=== PATIENT | male | born 2005 | race Caucasian/White ===

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

== ENCOUNTER 2023-03-08 17:25 | Emergency (ER) | payer OTHER, SELFPAY ==
[2023-03-08 17:45] VITALS: BP 152/94; PULSE 88; RESP 16; TEMP 36.4; O2SAT 100
[2023-03-08 18:15] LABS: Basophils Percent Auto 0.5 % (0.2-1.2); Eosinophils Absolute Auto 0.1 K/mm3 (0-0.3); Hemoglobin 16.9 g/dL (14.0-18.0); Immature Granulocyte Absolute 0.02 K/mm3 (0.00-0.031); Immature Granulocyte Percent A 0.3 % (0-0.5); Lymphocytes Absolute Auto 3.07 K/mm3 (0.9-3.2); Mean Corpuscular HGB Conc 35.2 g/dl (32-36); Mean Corpuscular Hemoglobin 31.5 pg (26-34); Mean Corpuscular Volume 89.4 fl (80-100); Mean Platelet Volume 10.7 fl (7.4-10.4); Monocytes Absolute Auto 0.4 K/mm3 (0.1-0.6); Monocytes Percent Auto 6.4 % (2.6-8.5); Neutrophils Absolute Auto 2.7 K/mm3 (1.3-6.7); Neutrophils Percent Auto 42.8 % (45.5-73.1); Platelet Count Result 212 k/mm3 (150-375); Red Blood Count 5.37 M/mm3 (4.6-6.20); Red Cell Distribution Width 12.3 % (11.5-14.5); White Blood Count 6.4 K/mm3 (4.5-10.0)
[2023-03-08 18:19] LABS: Appearance Urine Clear (Clear); Bacteria Urine None Seen /hpf; Bilirubin Urine 1+ (Negative); Blood Urine Negative (Negative); Color Urine Dark Yellow (Yellow); Glucose Urine UA 3+ mg/dL (Negative); Ketones Urine Trace mg/dL (Negative); Leukocyte Esterase Ur Trace LEU/UL (Negative); Nitrate Urine Negative (Negative); Non Pathogenic Casts 0-2; Protein Urine 1+ mg/dL (Negative); RBC Urine 0-2 /hpf (0-2); Specific Grav Ur 1.034 (1.001-1.035); Squamous Epithelial Cell Urine None seen /hpf (Few); pH Urine 5.5 (5.0-9.0)
[2023-03-08 18:24] LABS: Ethanol < 10 mg/dL (<10)
[2023-03-08 18:27] LABS: Add Urine Microscopic? YES
[2023-03-08 18:31] LABS: Alanine Aminotransferase 24 U/L (6-50); Albumin Level 4.6 g/dL (3.7-5.6); Alkaline Phosphatase 88 U/L (58-237); Anion Gap 4 mmol/L (8-16); Aspartate Amino Transferase 24 U/L (17-59); Bilirubin,Total 1.3 mg/dL (0.2-1.3); Blood Urea Nitrogen 9 mg/dL (8-21); Calcium 9.8 mg/dL (8.9-10.7); Carbon Dioxide 33 mmol/L (22-30); Chloride 99 mmol/L (98-107); Estimated CRCL calculation 150 ml/min; Estimated Glomerular Filt Rate > 60; Glucose 248 mg/dL (65-110); Potassium 3.5 mmol/L (3.4-5.0); Sodium 136 mmol/L (134-143)
[2023-03-08 18:35] LABS: Amphetamine Screen Urine Negative (Negative); Barbiturate Screen Urine Negative (Negative); Benzodiazepines Screen Urine Negative (Negative); Cannabinoid Screen Urine Positive (Negative); Cocaine Screen Urine Negative (Negative); Methadone Screen Urine Negative (Negative); Opiate Screen Urine Negative (Negative); Phencyclidine Screen Urine Negative (Negative)
[2023-03-08 19:32] LABS: Influenza A QL RT-PCR Negative (Negative); Influenza B QL RT-PCR Negative (Negative); SARS-CoV-2 RNA PCR Negative (Negative)
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
--- NOTE | 2023-03-08 20:11 | PC.NURSE ---
Called [facility], spoke with Feliberto, was directed to call [facility] since the pt is under the age 21.
[2023-03-08 23:59] VITALS: BP 150/100; PULSE 78; RESP 15; TEMP 36.9; O2SAT 100
--- NOTE | 2023-03-09 02:32 | PC.NURSE ---
Patient requested nicotine patch. Per EDP Dr. Meyer patient can nicotine patch
[2023-03-09] MEDS: NICOTINE (*PBKC) 21 MG PATCH 1 PATCH TRANSDERM (02:35)
--- NOTE | 2023-03-09 07:14 | PC.NURSE ---
Safety tray ordered for patient
== END 2023-03-09 09:31 ==
PROVIDERS: Emergency Provider Emergency Medicine; PCP Student in an Organized Health Care Education/Training Program
DX: F31.9 Bipolar disorder, unspecified (principal); R45.850 Homicidal ideations; E11.9 Type 2 diabetes mellitus without complications; Z20.822 Contact with and (suspected) exposure to COVID-19; Z79.84 Long term (current) use of oral hypoglycemic drugs
CPT/HCPCS: 36415; 80053; 80307; 81001; 84443; 85025; 87086; 87088; 87636; 99285; A9270

== ENCOUNTER 2023-06-25 14:42 | Emergency (ER) | payer OTHER, SELFPAY ==
--- NOTE | 2023-06-25 14:47 | ED.EYEPROB ---
HPI - Eye Problem General Chief complaint: Eye Problems Stated complaint: EYELID REDNESS/SWELLING Time Seen by Provider: 06/25/23 15:02 Source: patient and RN notes reviewed Mode of arrival: ambulatory Limitations: no limitations History of Present Illness HPI Narrative: 18-year-old male presents concern for redness and swelling of his left lower lid. He reports he noticed it several days ago. He tried a warm compress wants without relief. He denies vision changes. Reports it did drain some purulent drainage 1 time. chief complaint: eye redness Related Data Home Medications Medication Instructions Recorded Confirmed clonidine HCl 0.1 mg tablet 0.1 mg PO BID 06/25/23 06/25/23 duloxetine 60 mg capsule,delayed 60 mg PO DAILY 06/25/23 06/25/23 release gabapentin 600 mg tablet 600 mg PO TID 06/25/23 06/25/23 ziprasidone HCl 80 mg capsule 80 mg PO DAILY 06/25/23 06/25/23 Allergies Allergy/AdvReac Type Severity Reaction Status Date / Time No Known Allergies Allergy Verified 06/25/23 14:50 Review of Systems Review of Systems: CONSTITUTIONAL: Denies malaise, chills, sweats, or fever. EYES: Denies visual changes. Reports redness, tenderness, 1 episode of discharge from the left lower lid ENT: Denies rhinorrhea, congestion, sinus pain, otalgia or sore throat. SKIN: Denies rash or itching. NEUROLOGIC: Denies numbness, weakness, or headache. PSYCHIATRIC: Denies anxiety or depression. All systems reviewed & are unremarkable except as noted in HPI and below PMFSH Past Medical History Medical History Diabetes Surgical History Surgical History History of hand surgery Social History Social History Substance use type: marijuana Comments At time of signature, agree with nursing past medical, surgical, social and family history. There is no relevant family history pertinent to the presenting complaint Exam Narrative: GENERAL: Well-appearing, well-nourished, and in no acute distress. HEAD: Normocephalic, atraumatic. EYES: PERRLA, sclera clear, and EOMI. No nystagmus. Bilateral conjunctivae injected. Upper and lower eyelid unremarkable, no periorbital edema noted ENT: Nares clear, turbinates pink, no rhinorrhea or epistaxis. Mucous membranes moist. TM pearly renteria with sharp light reflex bilaterally; no tragal tenderness. NECK: Supple. CHEST: No respiratory distress. Speaks in full sentences. HEART: Regular rate and rhythm. SKIN: Warm, dry, no visible rash. NEURO: Alert and oriented x3. PSYCH: Normal mood and affect Course Course Emergency Course: Patient is aware of diagnosis, understands and agrees to treatment plan. Anticipatory guidance given. Patient agrees to follow-up as directed and is aware of reasons to seek care at the emergency department. Portions of this record may have been created with voice recognition software Level of Care: Express Care Visit Vital Signs Vital signs: Reviewed. MDM - Eye Problem MDM Narrative Medical decision making narrative: Consideration of the following conditions may be warranted for the presenting problem, they are not final diagnoses: Bacterial conjunctivitis, allergic conjunctivitis, viral conjunctivitis, foreign body, blepharitis, chalazion, hordeolum, corneal abrasion, preseptal cellulitis, orbital cellulitis. No evidence of proptosis, ophthalmoplegia, vision loss, pain with eye movement. Exam findings show no acute concerns or changes; patient is non-toxic appearing and is in no distress. Patient is appropriate for outpatient treatment and follow-up. Critical Care Time Critical Care Time Critical Care Time: No Discharge Plan Discharge Clinical Impression: Hordeolum internum left lower eyelid Patient Disposition: Home, Self-Care Condition: Stable Instructions
[2023-06-25 14:53] VITALS: BP 160/100; PULSE 116; RESP 16; TEMP 36.1; O2SAT 99
== END 2023-06-25 15:16 | disposition home or self-care (01) ==
PROVIDERS: Emergency Provider Nurse Practitioner
DX: H00.025 Hordeolum internum left lower eyelid (principal); E11.9 Type 2 diabetes mellitus without complications; F12.90 Cannabis use, unspecified, uncomplicated
CPT/HCPCS: 99213; G0463

== ENCOUNTER 2023-12-03 19:26 | Emergency (ER) | payer OTHER, SELFPAY ==
--- NOTE | 2023-12-03 19:29 | ED.URI ---
HPI - URI/Sore Throat General Chief Complaint: Upper Respiratory Infection Stated Complaint: CONGESTION/GAGGING Time Seen by Provider: 12/03/23 19:29 Source: patient Mode of arrival: ambulatory Limitations: no limitations History of Present Illness HPI Narrative: Yusef is a 18-year-old male patient presenting to the clinic today with complaints of cough and congestion with gagging. Reports that he has slight scratchy throat. Symptoms have been going on for 1 week. He denies any known fever or chills. He has not taken anything for his symptoms as he does not know what is going on. Related Data Home Medications Medication Instructions Recorded Confirmed clonidine HCl 0.1 mg tablet 0.1 mg PO BID 12/03/23 12/03/23 gabapentin 600 mg tablet 600 mg PO BID 12/03/23 12/03/23 Allergies Allergy/AdvReac Type Severity Reaction Status Date / Time No Known Allergies Allergy Verified 12/03/23 19:35 Review of Systems Review of Systems: Pertinent positives per HPI. Patient denies any fever, chills, rash, headache, visual changes, dizziness, shortness of breath, chest pain, palpitations, nausea, vomiting, diarrhea, constipation, abdominal pain, or any urinary issues. PMFSH Past Medical History Medical History Diabetes Surgical History Surgical History History of hand surgery Social History Social History Substance use type: marijuana Comments At the time of my signature, I reviewed and agree with the nursing past medical, surgical, social, and family history. There is no relevant family history pertinent to the patient complaint. Exam Narrative: General: Well-developed, well nourished, in no apparent distress Head: Normocephalic, atraumatic Eyes: Pupils equally round and reactive to light bilaterally, EOM intact, sclera and conjunctive clear, no discharge, lids normal Ears: TMs intact and clear, ear canals clear, no drainage, grossly hearing normal. Nose: Nares patent, clear discharge, no inflammation, no sinus tenderness. Mouth: Oropharynx mildly red without lesions or masses, good dentition, MMM. Neck: Supple, trachea midline, no enlargement of anterior or posterior cervical nodes, no thyroid masses or goiter palpable. Cardio: Regular rate and rhythm, s1 and s2 normal, no murmur appreciated. Resp: Clear to auscultation bilaterally anteriorly and posteriorly, no rhonchi, rales, wheezing or rubs Course Course Emergency Course: Portions of this record may have been created with voice recognition software. Level of Care: Express Care Visit Vital Signs Vital signs: Vital Signs Temperature 37.3 C 12/03/23 19:38 Pulse Rate 110 H 12/03/23 19:38 Respiratory Rate 20 12/03/23 19:38 Blood Pressure 150/101 H 12/03/23 19:38 Pulse Oximetry 98 12/03/23 19:38 Temperature 37.3 C 12/03/23 19:38 Pulse Rate 110 H 12/03/23 19:38 Respiratory Rate 20 12/03/23 19:38 Blood Pressure 150/101 H 12/03/23 19:38 Pulse Oximetry 98 12/03/23 19:38 Vital signs reviewed MDM - URI/Sore Throat MDM Narrative Medical decision making narrative: At the time of visit patient is resting comfortably on the exam table. Patient appears to be nontoxic. Labs: Strep test was negative in the clinic today. We will send for culture Plan: I suspect patient has URI with pharyngitis. Will send strep for culture. Recommend trialing [id number] medications for symptoms. Supportive measures were discussed with the patient and they voiced understanding discharge instructions and agrees to treatment plan. Return precautions reviewed Differential Diagnosis Differential diagnosis: Likely upper respiratory infection, otitis media, sinusitis, viral infection, bronchitis, influenza, pharyngitis and other (COVID) Lab Data Labs
[2023-12-03 19:38] VITALS: BP 150/101; PULSE 110; RESP 20; TEMP 37.3; O2SAT 98
== END 2023-12-03 19:57 | disposition home or self-care (01) ==
PROVIDERS: Emergency Provider Nurse Practitioner Family; PCP Internal Medicine Gastroenterology
DX: B34.9 Viral infection, unspecified (principal); J06.9 Acute upper respiratory infection, unspecified; J02.9 Acute pharyngitis, unspecified; E11.9 Type 2 diabetes mellitus without complications
CPT/HCPCS: 87081; 87880; 99213; G0463

== ENCOUNTER 2024-03-05 19:55 | Emergency (ER) | payer OTHER, SELFPAY ==
[2024-03-05 20:00] VITALS: BP 129/81; PULSE 87; RESP 20; TEMP 37.5; O2SAT 100
--- NOTE | 2024-03-05 21:48 | ED.NAVMDI ---
HPI - Nausea/Vomiting/Diarrhea General Chief complaint: Nausea/Vomiting/Diarrhea Stated complaint: needs work note Time Seen by Provider: 03/05/24 20:58 History of Present Illness HPI Narrative: 18-year-old male with a history of type 2 diabetes presents to the emergency department for viral symptoms for 1 day. Patient states his symptoms started yesterday with nausea, vomiting, an upset stomach. States he woke up today generalized malaise, chills and headache. He denies recent sick contacts or fever. Denies dysuria or hematuria, abdominal pain, diarrhea , cough or congestion. 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 Related Data Home Medications Medication Instructions Recorded Confirmed clonidine HCl 0.1 mg tablet 0.1 mg PO BID 12/03/23 12/03/23 gabapentin 600 mg tablet 600 mg PO BID 12/03/23 12/03/23 Allergies Allergy/AdvReac Type Severity Reaction Status Date / Time No Known Allergies Allergy Verified 03/05/24 20:09 Review of Systems Review of Systems: All systems reviewed & are unremarkable except as noted in HPI and below PMFSH Past Medical History Medical History Diabetes Surgical History Surgical History History of hand surgery Social History Social History Substance use type: marijuana Exam Narrative: GENERAL: Well-appearing, well-nourished, and in no acute distress. HEAD: Normocephalic, atraumatic. EYES: PERRLA and EOMI. ENT: Nares clear, no rhinorrhea or epistaxis. Mucous membranes moist. NECK: Supple. CHEST: Clear to auscultation. No respiratory distress. HEART: Regular rate and rhythm. No murmur heard. Normal peripheral pulses. ABDOMEN: Soft, nontender, nondistended, normal active bowel sounds. No rebound, guarding or rigidity. No CVA tenderness EXTREMITIES: Normal range of motion. No edema. SKIN: Warm, dry, no rash. NEURO: No focal deficits. Alert and oriented x3 Course Vital Signs Vital signs: Vital Signs Temperature 99.5 F 03/05/24 20:00 Pulse Rate 87 03/05/24 20:00 Respiratory Rate 20 03/05/24 20:00 Blood Pressure 129/81 03/05/24 20:00 Pulse Oximetry 100 03/05/24 20:00 Oxygen Delivery Room Air 03/05/24 20:00 Temperature 99.5 F 03/05/24 20:00 Pulse Rate 87 03/05/24 20:00 Respiratory Rate 20 03/05/24 20:00 Blood Pressure 129/81 03/05/24 20:00 Pulse Oximetry 100 03/05/24 20:00 Oxygen Delivery Room Air 03/05/24 20:00 MDM - Nausea/Vomiting/Diarrhea MDM Narrative Medical decision making narrative: 18-year-old male with history of diabetes presents to the emergency department for generalized malaise, chills, s/p, upset stomach for 1 day. Vitals are stable. He is afebrile and nontoxic appearing. Exam is significant for the above. Given history of diabetes will obtain basic lab work to evaluate for DKA and provide a L fluids and Zofran as well as Tylenol for symptomatic control. CBC is without leukocytosis. Chemistries are unremarkable with normal bicarb and anion gap. UA with blood on dipstick, however microscopy shows no UTI. Lipase is normal. COVID, flu RSV are negative. Workup discussed with the patient. He received IV fluids, Zofran and Tylenol with improvement. Suspect viral syndrome. Advised him to hydrate at home, take Tylenol ibuprofen for body aches and fever and follow-up closely with his PCP. Strict ED return precautions discussed. He is agreeable with the plan verbalized understanding. Discharged in stable condition. Lab Data 03/05/24 22:02 03/05/24 22:02 Labs: Lab Results 03/05/24 03/05/24 03/05/24 Range/Units 21:24 22:02 22:08 WBC 8.4 (4.5-10.0) K/mm3 RBC 4.60 (4.6-6.20) M/mm3 Hgb 15.2 (14.0-1
[2024-03-05] MEDS: ACETAMINOPHEN 500 MG TABLET 1000 MG PO (21:56)
[2024-03-05] MEDS: ONDANSETRON INJ 4 MG/2 ML VIAL IV PUSH (21:57)
[2024-03-05] MEDS: SODIUM CHLORIDE 0.9% IV 1,000 ML 999 ML IV CONT (21:58)
[2024-03-05 22:08] LABS: Basophils Percent Auto 0.4 % (0.2-1.2); Eosinophils Absolute Auto 0.1 K/mm3 (0-0.3); Eosinophils Percent Auto 1.4 % (0-4.4); Hematocrit 41.3 % (42.0-52.0); Hemoglobin 15.2 g/dL (14.0-18.0); Immature Granulocyte Absolute 0.02 K/mm3 (0.00-0.031); Immature Granulocyte Percent A 0.2 % (0-0.5); Lymphocytes Absolute Auto 2.22 K/mm3 (0.9-3.2); Lymphocytes Percent Auto 26.3 % (18.3-44.2); Mean Corpuscular HGB Conc 36.8 g/dl (32-36); Mean Corpuscular Volume 89.8 fl (80-100); Mean Platelet Volume 11.3 fl (7.4-10.4); Monocytes Absolute Auto 0.7 K/mm3 (0.1-0.6); Monocytes Percent Auto 7.7 % (2.6-8.5); Neutrophils Absolute Auto 5.4 K/mm3 (1.3-6.7); Platelet Count Result 174 k/mm3 (150-375); White Blood Count 8.4 K/mm3 (4.5-10.0)
[2024-03-05 22:10] LABS: Influenza A QL RT-PCR Negative (Negative); Influenza B QL RT-PCR Negative (Negative); RSV RNA, RT-PCR Negative (Negative); SARS-CoV-2 RNA PCR Negative (Negative)
[2024-03-05 22:17] LABS: Alanine Aminotransferase 14 U/L (6-50); Albumin Level 4.6 g/dL (3.5-5.1); Alkaline Phosphatase 67 U/L (38-126); Anion Gap 10 mmol/L (4-12); Aspartate Amino Transferase 18 U/L (17-59); Blood Urea Nitrogen 9 mg/dL (9-20); Calcium 9.6 mg/dL (8.4-10.2); Carbon Dioxide 28 mmol/L (22-30); Chloride 101 mmol/L (98-107); Estimated CRCL calculation 136 ml/min; Estimated Glomerular Filt Rate > 60; Glucose 157 mg/dL (65-110); Lipase 94 U/L (23-300); Potassium 3.9 mmol/L (3.4-5.0); Sodium 139 mmol/L (137-145)
[2024-03-05 22:20] LABS: Add Urine Microscopic? YES; Appearance Urine Clear (Clear); Bacteria Urine None Seen /hpf; Bilirubin Urine Negative (Negative); Blood Urine 2+ (Negative); Color Urine Yellow (Yellow); Glucose Urine UA Negative (Negative); Ketones Urine Negative (Negative); Leukocyte Esterase Ur Negative LEU/UL (Negative); Nitrate Urine Negative (Negative); Non Pathogenic Casts 0-2; Protein Urine Trace mg/dL (Negative); RBC Urine 0-2 /hpf (0-2); Specific Grav Ur 1.008 (1.001-1.035); Squamous Epithelial Cell Urine None Seen /hpf (Few); Urobilinogen Urine 0.2 mg/dL (<2.0); WBC Urine 0-5 /hpf (0-3); pH Urine 5.5 (5.0-9.0)
[2024-03-05 23:00] VITALS: BP 132/92; PULSE 81; RESP 16; O2SAT 100
== END 2024-03-05 23:01 | disposition home or self-care (01) ==
PROVIDERS: Emergency Medicine; Emergency Provider Physician Assistant; PCP Internal Medicine Gastroenterology
DX: B34.9 Viral infection, unspecified (principal); Z20.822 Contact with and (suspected) exposure to COVID-19; E11.9 Type 2 diabetes mellitus without complications
CPT/HCPCS: 36415; 80053; 81001; 83690; 85025; 87637; 96361; 96374; 99284; A9270; J2405; J7030

== ENCOUNTER 2024-08-26 15:32 | Emergency (ER) | payer OTHER, SELFPAY ==
--- NOTE | ~2024-08-26 | XR_ITS ---
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 RESULT: Lines, tubes, and devices: None. Lungs and pleura: Clear. Cardiomediastinal silhouette: Normal. Other: No acute osseous or upper abdominal finding. IMPRESSION: No acute cardiopulmonary process. Reviewed, dictated and finalized at location K. Y DRIER OPERATOR
--- OUTSIDE RECORDS SUMMARY | 2024-08-26 15:34 | XMS_ITS | Referral Summary ---
Author Organization [facility] Address [address] [place] [address] Care Team Providers Care Commissary Representative Name Role Phone Unavailable Primary Care Provider Unavailabl e Source Comments [facility],non-owned Affiliates and Associated Physician Practices is amultiple site organization consisting of ambulatory clinics and hospital sitesin [place], [place], [place] and [place]. This disclosure is being madepursuant to the Care Everywhere program and may not contain all information available regarding this patient. Last updated 18.[facility] Allergies No known active allergies Medications * Be aware that medications may not be up to date on this document. Alwaysverify current medications with the patient. Medication Sig Dispensed Refills Start Date End Date Status liraglutide (VICTOZA) 18 MG/3ML pen Inject 1.2 mg subcutaneously every evening Active metFORMIN (GLUCOPHAGE) 500 MG tablet Take 1 tablet by mouth 2 times daily with morning and evening meal 120 tablet 2 03/11/2020 Active Immunizations Name Administration Dates Next Due TDAP (7yrs+) 11/22/2021 Social History Tobacco Use Types Packs/Day Years Used Date Smoking Tobacco: Every Day Cigarettes Smokeless Tobacco: Never Alcohol Use Standard Drinks/Week Comments Yes 0 (1 standard drink = 0.6 oz pur e alcohol) socially AUDIT-C Answer Date Recorded Q1: How often do you have a drink containing alc ohol? Monthly or less 11/22/2021 Q2: How many drinks containi ng alcohol do you have on a typical day when you are drinking? 1 or 2 11/22/2021 Q3: How often do you have si x or more drinks on one occasion? Never 11/22/2021 Sex and Gender Information Value Date Recorded Sex Assigned at Not on file Gender Identity Not on file Sexual Orientation Not on file Last Filed Vital Signs Vital Sign Reading Time Taken Comments Blood Pressure 142/87 11/22/2021 6:36 PM CDT Pulse 67 11/22/2021 6:36 PM CDT Temperature 36.9 ??C (98.5 ??F) 11/22/2021 12:36 PM C DT Respiratory Rate 16 11/22/2021 6:36 PM CDT Oxygen Saturation 98% 11/22/2021 6:36 PM CDT Inhaled Oxygen Concentration - - Weight 97.6 kg (215 lb 2.7 oz) 03/11/2020 11:21 PM CDT Height 185.4 cm (6' 1 ) 03/11/2020 11:21 PM CDT Body Mass Index 28.39 03/11/2020 11:21 PM CDT Plan of Treatment Not on file
--- OUTSIDE RECORDS SUMMARY | 2024-08-26 15:34 | XMS_ITS | Patient Health Summary ---
Author Organization [facility] Bill.Forward Address [address] [place] [address] Care Team Providers Care Dock Superintendent Name Role Phone Unavailable Primary Care Provider Unavailabl e Note from [facility] Bill.Forward [facility], formerly [facility],non-owned Affiliates and Associated Physician Practices is amultiple site organization consisting of ambulatory clinics and hospital sitesin [place], [place], [place] and [place]. This disclosure is being madepursuant to the Care Everywhere program and may not contain all information available regarding this patient. Last updated 18.[facility] Bill.Forward Allergies No known active allergies Medications * Be aware that medications may not be up to date on this document. Alwaysverify current medications with the patient. * liraglutide (VICTOZA) 18 MG/3ML pen Inject 1.2 mg subcutaneously every evening * metFORMIN (GLUCOPHAGE) 500 MG tablet(Started 03/11/2020) Take 1 tablet by mouth 2 times daily with morning and evening meal 2 refills by 03/11/2021 Immunizations * TDAP (7yrs+)(Given 11/22/2021) Social History Tobacco Use Types Packs/Day Years [...] Mass Index 28.39 03/11/2020 11:21 PM CDT Procedures * COMPREHENSIVE METABOLIC PANEL(Performed 11/22/2021) * CBC W AUTO DIFFERENTIAL(Performed 11/22/2021) * GLUCOSE - POINT OF CARE(Performed 11/22/2021) * CT FACIAL BONES WO CONTRAST(Performed 11/22/2021) Performed for Fall, initial encounter * CT HEAD WO CONTRAST(Performed 11/22/2021) Performed for Fall, initial encounter * GLUCOSE - POINT OF CARE(Performed 03/12/2020) * GLUCOSE - POINT OF CARE(Performed 03/12/2020) * URINE MICROSCOPIC ONLY REFLEX TO CULTURE(Performed 03/12/2020) * URINALYSIS REFLEX MICROSCOPIC REFLEX CULTURE(Performed 03/12/2020) * DRUG ABUSE URINE SCREEN 10(Performed 03/12/2020) * SALICYLATE LEVEL BLOOD(Performed 03/11/2020) * ALCOHOL ETHYL BLOOD(Performed 03/11/2020) * ACETAMINOPHEN LEVEL(Performed 03/11/2020) * COMPREHENSIVE METABOLIC PANEL(Performed 03/11/2020) * CBC W AUTO DIFFERENTIAL(Performed 03/11/2020) * GLUCOSE - POINT OF CARE(Performed 03/11/2020) * GLUCOSE - POINT OF CARE(Performed 03/10/2020) * URINE MICROSCOPIC ONLY REFLEX TO CULTURE(Performed 03/10/2020) * URINALYSIS REFLEX MICROSCOPIC REFLEX CULTURE(Performed 03/10/2020) * DRUG ABUSE URINE SCREEN 10(Performed 03/10/2020) * SALICYLATE LEVEL BLOOD(Performed 03/10/2020) * TSH(Performed 03/10/2020) * ALCOHOL ETHYL BLOOD(Performed 03/10/2020) * ACETAMINOPHEN LEVEL(Performed 03/10/2020) * COMPREHENSIVE METABOLIC PANEL(Performed 03/10/2020) * CBC W AUTO DIFFERENTIAL(Performed 03/10/2020) * GLUCOSE - POINT OF CARE(Performed 03/10/2020) Results * (ABNORMAL) CBC W AUTO DIFFERENTIAL (11/22/2021 5:42 PM CDT) Only the most recent of3 resultswithin the time period is included. WBC 8.6 4.5 - 11.0 10? 3 /uL 11/22/2021 5:54 PM [facility] RBC 4.36(L) 4.50 - 5.30 10? 6 /uL 11/22/2021 5:54 PM [facility] Hemoglobin 14.3 13.0 - 16.0 g/dL 11/22/2021 5:54 PM [facility] Hematocrit 39.9 37.0 - 49.0 % 11/22/2021 5:54 PM [facility] MCV 91.5 78.0 - 98.0 fL 11/22/2021 5:54 PM [facility] MCH 32.8 25.0 - 35.0 pg 11/22/2021 5:54 PM [facility] MCHC 35.8 31.0 - 37.0 g/dL 11/22/2021 5:54 PM [facility] Platelet Count 236 100 - 400 10? 3 /uL 11/22/2021 5:54 PM [facility] RDW-SD 46.8 36.0 - 50.0 fL 11/22/2021 5:54 PM [facility] RDW-CV 14.0 11.5 - 14.0 % 11/22/2021 5:54 PM [facility] MPV 10.9(H) 6.0 - 9.5 fL 11/22/2021 5:54 PM [facility] nRBC Absolute 0.00 0 10? 3 /uL 11/22/2021 5:54 PM [facility] nRBC Auto 0.0 0 /100 WBC 11/22/2021 5:54 PM CDT [facility] Neutrophils % 65.8 31.0 - 78.0 % 11/22/2021 5:54 PM CDT [facility] Lymphocytes % 23.5 13.0 - 54.0 % 11/22/2021 5:54 PM CDT [facility] Monocytes % 7.7 4.0 - 13.0 % 11/22/2021 5:54 PM CDT [facility] Eosinophils % 2.0 0.0 - 8.0 % 11/22/2021 5:54 PM CDT [facility] Basophil % 0.6 0.0 - 100.0 % 11/22/2021 5:54 PM CDT [facility] Neutrophils Absolute 5.6 1.4 - 8.6 10? 3 /uL 11/22/2021 5:54 PM CDT [facility] Lymphocyte Absolute 2.0 0.6 - 5.9 10? 3 /uL 11/22/2021 5:54 PM CDT [facility] Monocytes Absolute 0.66 0.18 - 1.43 10? 3 /uL 11/22/2021 5:54 PM CDT [facility] Eosinophils Absolute 0.17 0.00 - 0.88 10? 3 /uL 11/22/2021 5:54 PM CDT [facility] Basophils Absolute 0.05 0.00 - 0.22 10? 3 /uL 11/22/2021 5:54 PM CDT [facility] Immature Granulocytes % 0.4 0.0 - 1.0 % 11/22/2021 5:54 PM CDT [facility] Immature Granulocytes Absolute 0.03 11/22/2021 5:54 PM T [facility] Blood BLOOD SPECIMEN / Unknown Venipuncture / Unknown 11/22/2021 5:42 PM CDT 11/22/2021 5:48 PM CDT Clemente Oden MD LAB - HEMATOLOGY ORD ERABLES [facility] [address] [place] [address], [facility] [phone] * (ABNORMAL) COMPREHENSIVE METABOLIC PANEL (11/22/2021 5:42 PM CDT) Only the most recent of3 resultswithin the time period is included. BUN 9 7 - 26 mg/dL 11/22/2021 6:19 PM [facility] Creatinine 0.77 0.71 - 1.16 mg/dL 11/22/2021 6:19 PM [facility] Sodium 141 136 - 145 mmol/L 11/22/2021 6:19 PM [facility] Potassium 3.9 3.5 - 4.5 mmol/L 11/22/2021 6:19 PM [facility] Chloride 101 98 - 107 mmol/L 11/22/2021 6:19 PM [facility] CO2 30(H) 22 - 29 mmol/L 11/22/2021 6:19 PM [facility] Glucose 304(H) 70 - 115 mg/dL 11/22/2021 6:19 PM [facility] Calcium 10.1 8.4 - 10.2 mg/dL 11/22/2021 6:19 PM [facility] Protein Total 7.5 6.0 - 8.3 g/dL 11/22/2021 6:19 PM [facility] Albumin 4.0 3.4 - 5.0 g/dL 11/22/2021 6:19 PM [facility] Bilirubin Total 0.9 0.2 - 1.2 mg/dL 11/22/2021 6:19 PM [facility] Alkaline Phosphatase 107 40 - 150 U/L 11/22/2021 6:19 PM [facility] ALT 22 5 - 55 U/L 11/22/2021 6:19 PM [facility] AST 14 5 - 34 U/L 11/22/2021 6:19 PM [facility] Anion Gap 14 8 - 18 11/22/2021 6:19 PM [facility] BUN/Creatinine Ratio 12 7 - 23 11/22/2021 6:19 PM [facility] Osmolality Calculated 302(H) 270 - 300 mOsm/kg 11/22/2021 6:19 PM [facility] Albumin/Globulin Ratio 1.1 1.1 - 2.3 11/22/2021 6:19 PM [facility] eGFR by CKD-EPI >90 >=90 mL/min/1.7 3 m2 11/22/2021 6:19 PM CDT [facility] Blood BLOOD SPECIMEN / Unknown Venipuncture / Unknown 11/22/2021 5:42 PM CDT 11/22/2021 5:49 PM CDT Clemente Oden MD LAB - CHEMISTRY SABINA CORTEZ Performing Organization Address City/[facility]/ZIP Co de Phone Number [address] [address], [place] [phone] * (ABNORMAL) GLUCOSE - POINT OF CARE (11/22/2021 4:18 PM CDT) Only the most recent of6 resultswithin the time period is included. Glucose WB/POC 310(H) 70 - 115 mg/dL 11/22/2021 4:23 PM CDT [facility] Specimen Type Cap Fingerstick 2021 4:23 PM CDT [facility] Blood BLOOD SPECIMEN / Unknown 11/22/2021 4:18 PM CDT 11/22/2021 4:23 PM CDT Provider Unknown LAB - POINT OF CARE ORDERABLES Performing Organization Address [facility] Co de Phone Number [address] [address], [place] [phone] * CT FACIAL BONES WO CONTRAST (11/22/2021 1:53 PM CDT) Anatomical Region Laterality Modality Head Computed Tomogra phy 11/22/2021 2:17 PM CDT Impressions 11/22/2021 5:52 PM CDT IMPRESSION: 1.No acute intracranial hemorrhage, midline shift, or significant mass effect. 2.No acute facial bone fractures identified. 3.Paranasal sinus disease as outlined. Report drafted by Patricia Arboleda MD ([employer]). This report was approved ??by Patricia Arboleda ?? on 11/22/2021 5:51 PM . I, Dr. JOSE CHILDRESS have personally reviewed and interpreted this examination/study. This report was electronically signed by JOSE CHILDRESS ??on 11/22/2021 5:52 PM . Narrative 11/22/2021 5:[address] HEAD WO CONTRAST, CT FACIAL BONES WO CONTRAST DATE: 11/22/2021 1:55 PM EXAMINATION: 1. Computed tomography (CT) of the head without contrast 2. CT of the maxillofacial bones, orbits, and paranasal sinuses without contrast HISTORY: W19.XXXA: Fall, initial encounter TECHNIQUE: CT of the head and maxillofacial bones, orbits, and paranasal sinuses was performed without contrast according to standard protocol. COMPARISON: No prior study is available for comparison at the time of this dictation. FINDINGS: Head: No acute intra- or extra-axial fluid collections are identified. The ventricles are of normal size, shape, and morphology. The basilar cisterns are patent. No mass effect or midline shift is seen. The renteria-white matter differentiation is normal. No acute calvarial fracture is identified. Maxillofacial: The orbits appear normal. There is significant paranasal sinus disease including complete opacification of the right maxillary sinus and near complete opacification of the left maxillary sinus. Secretions are also seen in the nasal cavity and the nasopharynx. 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 Scattered opacification in the left ethmoid air cells. Mild mucosal thickening in the remaining paranasal sinuses. Mild hypertrophy of the inferior turbinates. Mild degenerative changes of the temporomandibular joints. The hard palate, mandible, and temporomandibular joints appear normal. No acute facial bone fractures are identified. The mastoid air cells are clear. No soft tissue abnormality is identified. Procedure Note Jose Childress MD - 11/22/2021 CT HEAD WO CONTRAST, CT FACIAL BONES WO CONTRAST DATE: 11/22/2021 1:55 PM EXAMINATION: 1. Computed tomography (CT) of the head without contrast 2. CT of the maxillofacial bones, orbits, and paranasal sinuses without contrast HISTORY: [id number]: Fall, initial encounter TECHNIQUE: CT of the head and maxillofacial bones, orbits, and paranasal sinuses was performed without contrast according to standard protocol. COMPARISON: No prior study is available for comparison at the time ofthis dictation. FINDINGS: Head: No acute intra- or extra-axial fluid collections are identified. The ventricles are of normal size, shape, and morphology. The basilarcisterns are patent. No mass effect or midline shift is seen. The renteria-whitematter differentiation is normal. No acute calvarial fracture is identified. Maxillofacial: The orbits appear normal. There is significant paranasal sinus disease including complete opacification of the right maxillary sinus and near complete opacification of the left maxillary sinus. Secretions are also seen in the nasal cavity and the nasopharynx. 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 Scattered opacification in the left ethmoid air cells. Mild mucosal thickening in the remaining paranasal sinuses. Mild hypertrophy of the inferior turbinates. Mild degenerative changes of the temporomandibular joints. The hard palate, mandible, and temporomandibular joints appear normal. No acute facial bone fracturesare identified. The mastoid air cells are clear. No soft tissue abnormalityis identified. IMPRESSION: 1.No acute intracranial hemorrhage, midline shift, or significant mass effect. 2.No acute facial bone fractures identified. 3.Paranasal sinus disease as outlined. Report drafted by Patricia Arboleda MD ([employer]). This report was approved by Patricia Arboleda on 11/22/2021 5:51 PM . I, Dr. JOSE CHILDRESS have personally reviewed and interpreted this examination/study. This report was electronically signed by JOSE CHILDRESS on11/22/2021 5:52 PM . Yon BLUM-Sun CT ORDERAB LES * CT HEAD WO CONTRAST (11/22/2021 1:53 PM CDT) Anatomical Region Laterality Modality Head Computed Tomogra phy 11/22/2021 2:17 PM CDT Impressions 11/22/2021 5:52 PM CDT IMPRESSION: 1.No acute intracranial hemorrhage, midline shift, or significant mass effect. 2.No acute facial bone fractures identified. 3.Paranasal sinus disease as outlined. Report drafted by Patricia Arboleda MD ([employer]). This report was approved ??by Patricia Arboleda ?? on 11/22/2021 5:51 PM . I, Dr. JOSE CHILDRESS have personally reviewed and interpreted this examination/study. This report was electronically signed by JOSE CHILDRESS ??on 11/22/2021 5:52 PM . Narrative 11/22/2021 5:[address] HEAD WO CONTRAST, CT FACIAL BONES WO CONTRAST DATE: 11/22/2021 1:55 PM EXAMINATION: 1. Computed tomography (CT) of the head without contrast 2. CT of the maxillofacial bones, orbits, and paranasal sinuses without contrast HISTORY: [id number].XXXA: Fall, initial encounter TECHNIQUE: CT of the head and maxillofacial bones, orbits, and paranasal sinuses was performed without contrast according to standard protocol. COMPARISON: No prior study is available for comparison at the time of this dictation. FINDINGS: Head: No acute intra- or extra-axial fluid collections are identified. The ventricles are of normal size, shape, and morphology. The basilar cisterns are patent. No mass effect or midline shift is seen. The renteria-white matter differentiation is normal. No acute calvarial fracture is identified. Maxillofacial: The orbits appear normal. There is significant paranasal sinus disease including complete opacification of the right maxillary sinus and near complete opacification of the left maxillary sinus. Secretions are also seen in the nasal cavity and the nasopharynx. 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 Scattered opacification in the left ethmoid air cells. Mild mucosal thickening in the remaining paranasal sinuses. Mild hypertrophy of the inferior turbinates. Mild degenerative changes of the temporomandibular joints. The hard palate, mandible, and temporomandibular joints appear normal. No acute facial bone fractures are identified. The mastoid air cells are clear. No soft tissue abnormality is identified. Procedure Note Jose Childress MD - 11/22/2021 CT HEAD WO CONTRAST, CT FACIAL BONES WO CONTRAST DATE: 11/22/2021 1:55 PM EXAMINATION: 1. Computed tomography (CT) of the head without contrast 2. CT of the maxillofacial bones, orbits, and paranasal sinuses without contrast HISTORY: [id number].XXXA: Fall, initial encounter TECHNIQUE: CT of the head and maxillofacial bones, orbits, and paranasal sinuses was performed without contrast according to standard protocol. COMPARISON: No prior study is available for comparison at the time ofthis dictation. FINDINGS: Head: No acute intra- or extra-axial fluid collections are identified. The ventricles are of normal size, shape, and morphology. The basilarcisterns are patent. No mass effect or midline shift is seen. The renteria-whitematter differentiation is normal. No acute calvarial fracture is identified. Maxillofacial: The orbits appear normal. There is significant paranasal sinus disease including complete opacification of the right maxillary sinus and near complete opacification of the left maxillary sinus. Secretions are also seen in the nasal cavity and the nasopharynx. 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 Scattered opacification in the left ethmoid air cells. Mild mucosal thickening in the remaining paranasal sinuses. Mild hypertrophy of the inferior turbinates. Mild degenerative changes of the temporomandibular joints. The hard palate, mandible, and temporomandibular joints appear normal. No acute facial bone fracturesare identified. The mastoid air cells are clear. No soft tissue abnormalityis identified. IMPRESSION: 1.No acute intracranial hemorrhage, midline shift, or significant mass effect. 2.No acute facial bone fractures identified. 3.Paranasal sinus disease as outlined. Report drafted by Patricia Arboleda MD ([employer]). This report was approved by Patricia Arboleda on 11/22/2021 5:51 PM . I, Dr. JOSE CHILDRESS have personally reviewed and interpreted this examination/study. This report was electronically signed by JOSE CHILDRESS on11/22/2021 5:52 PM . Yon Rebollar PA-C CT ORDERAB LES * DRUG ABUSE URINE SCREEN 10 (03/12/2020 1:17 AM CDT) Only the most recent of2 resultswithin the time period is included. Amphetamines Screen Urine Negative Negative 03/12/2020 1:38 AM CDT [facility] Barbiturates Screen Urine Negative Negative 03/12/2020 1:38 AM CDT [facility] Benzodiazepines Screen Urine Negative Negative 03/12/2020 1:38 AM CDT [facility] Cannabinoids Screen Urine Negative Negative 03/12/2020 1:38 AM CDT [facility] Cocaine Screen Urine Negative Negative 03/12/2020 1:38 AM CDT [facility] Methadone Screen Urine Negative Negative 03/12/2020 1:38 AM CDT [facility] Opiate Screen Urine Negative Negative 03/12 1:38 AM CDT [facility] Phencyclidine Screen Urine Negative Negative 03/12/2020 1:38 AM CDT [facility] Tricyclics Screen Urine Negative Negative 03/12/2020 1:38 AM CDT [facility] Methamphetamine Screen Urine Negative Negative 03/12/2020 1:38 AM CDT [facility] Buprenorphine Screen Urine Negative Negative 03/12/2020 1:38 AM CDT [facility] Oxycodone Screen Urine Negative Negative 03/12/2020 1:38 AM CDT [facility] Propoxyphene Screen Urine Negative Negative 03/12/2020 1:38 AM CDT [facility] Urine URINE / Unknown Collection / Unknown 03/12/2020 1:17 AM CDT 03/12/2020 1:26 AM CDT Narrative [facility] - 03/12/2020 1:38 AM CDT This is a presumptive/unconfirmed test for medical treatment purposes only. Clinical consideration and professional judgment should be applied when using presumptive results. If confirmatory testing, such as gas chromatography-mass spectrometry (GC/MS), of any positive results of this test is required, please notify the laboratory within 7 days of collection. This test is intended only for monitoring or management of patients. It is not intended for use in job-related and/or legal-related purposes. The cutoff value for each analyte is: Barbiturates.....200 ng/mL ?? Benzodiazepines......150 ng/mL Cocaine..........150 ng/mL ?? Opiates..............100 ng/mL Phencyclidine.....25 ng/mL ?? Tricyclics...........300 ng/mL Cannabinoid.......50 ng/mL ?? Amphetamines.........500 ng/mL Methadone........200 ng/mL ?? Methamphetamines.....500 ng/mL Buprenorphine.....10 ng/mL ?? Oxycodone............100 ng/mL Propoxyphene.....300 ng/mL John Sykes MD LAB - URINE CHEMIS TRY ORDERABLES Performing Organization Address [facility] Co de Phone Number [facility] [address] * URINE MICROSCOPIC ONLY REFLEX TO CULTURE (03/12/2020 1:17 AM CDT) Only the most recent of2 resultswithin the time period is included. Reflex Status Culture not indicated 03/12/2020 1:33 AM CDT [facility] RBC UA None Seen None Seen, 0-2, 3-5 # /hpf 03/12/2020 1:33 AM CDT [facility] WBC UA 0-5 None Seen, 0-5 # /hpf 03/12/2020 1:33 AM CDT [facility] Bacteria UA None Seen None Seen 03/12/2020 1:33 AM CDT [facility] Squamous Epithelial Cells None Seen None Seen, 0-2, 3-5 /hpf 03/12/2020 1:33 AM CDT [facility] Mucus UA 1+ /LPF 03/12/2020 1:33 AM CDT [facility] Urine URINE SPECIMEN OBTAINED BY CLEAN CATCH PROCEDURE / Unknown Collection / Unknown 03/12/2020 1:17 AM CDT 03/12/2020 1:26 AM CDT Narrative [facility] - 03/12/2020 1:33 AM CDT John Sykes MD LAB - URINALYSIS O RDERABLES Performing Organization Address [facility] Co de Phone Number [facility] [address] * (ABNORMAL) URINALYSIS REFLEX MICROSCOPIC REFLEX CULTURE (03/12/2020 1:17 AM CDT) Only the most recent of2 resultswithin the time period is included. Color UA Yellow Straw, Yellow 03/12/2020 1:33 AM CDT [facility] Clarity UA Slt Cloudy(A) Clear 03/12/2020 1:33 AM CDT [facility] Glucose UA Negative Negative 03/12/2020 1:33 AM CDT [facility] Bilirubin UA Negative Negative 03/12/2020 1:33 AM CDT [facility] Ketone UA Negative Negative 03/12/2020 1:33 AM CDT [facility] Specific [place] UA 1.027 1.005 - 1.030 03/12/2020 1:33 AM CDT [facility] Blood UA Negative Negative 03/12/2020 1:33 AM CDT [facility] pH UA 5.0 5.0 - 8.0 pH 03/12/2020 1:33 AM CDT [facility] Protein UA 1+(A) Negative 03/12/2020 1:33 AM CDT [facility] Urobilinogen UA 2.0(A) Negative mg/dL 03/12/2020 1:33 AM CDT [facility] Nitrite UA Negative Negative 03/12/2020 1:33 AM CDT [facility] Leukocyte UA Negative Negative 03/12/2020 1:33 AM CDT [facility] Urine Microscopy Urine microscopy to follow 03/12/2020 1:33 AM CDT [facility] Urine URINE SPECIMEN OBTAINED BY CLEAN CATCH PROCEDURE / Unknown Collection / Unknown 03/12/2020 1:17 AM CDT 03/12/2020 1:26 AM CDT Narrative [facility] - 03/12/2020 1:33 AM CDT John Sykes MD LAB - URINALYSIS O RDERABLES Performing Organization Address City/State/[facility] Co de Phone Number [facility] [address] * ALCOHOL ETHYL BLOOD (03/11/2020 11:36 PM CDT) Only the most recent of2 resultswithin the time period is included. Ethanol <10.0 <10 mg/dL 03/12/2020 12:08 AM CDT [facility] Blood BLOOD SPECIMEN / Unknown Venipuncture / Unknown 03/11/2020 11:36 PM CDT 03/11/2020 11:46 PM CDT Narrative [facility] - 03/12/2020 12:08 AM CDT For Medical Use Only John Sykes MD LAB - CHEMISTRY OR DERABLES Performing Organization Address [facility] Co de Phone Number [facility] [address] * (ABNORMAL) SALICYLATE LEVEL BLOOD (03/11/2020 11:36 PM CDT) Only the most recent of2 resultswithin the time period is included. Salicylate <5.0(L) 15.0 - 30.0 mg/dL 03/12/2020 12:10 AM CDT [facility] Blood BLOOD SPECIMEN / Unknown Venipuncture / Unknown 03/11/2020 11:36 PM CDT 03/11/2020 11:46 PM CDT John Sykes MD LAB - CHEMISTRY OR DERABLES Performing Organization Address [facility] de Phone Number [facility] [address] * (ABNORMAL) ACETAMINOPHEN LEVEL (03/11/2020 11:36 PM CDT) Only the most recent of2 resultswithin the time period is included. Acetaminophen <0.6(L) 10.0 - 30.0 ug/mL 03/12/2020 12:10 AM CDT [facility] Blood BLOOD SPECIMEN / Unknown Venipuncture / Unknown 03/11/2020 11:36 PM CDT 03/11/2020 11:46 PM CDT Narrative [facility] - 03/12/2020 12:10 AM CDT Significantly reduced Acetaminophen recovery has been demonstrated in situations where testing has been performed immediately after introduction of N- acetylcysteine (NAC). John Sykes MD LAB - CHEMISTRY OR DERABLES Performing Organization Address [facility] Co de Phone Number [facility] [address] * TSH (03/10/2020 11:44 AM CDT) TSH 0.8928 0.35 - 4.94 uIU/mL 03/10/2020 12:37 PM CDT [facility] Blood BLOOD SPECIMEN / Unknown Venipuncture / Unknown 03/10/2020 11:44 AM CDT 03/10/2020 11:50 AM CDT Areli Cain EDUCATIONAL DIRECTOR-CERTIFIED PROSTHETIST/ORTHOTIST LAB - CHEMISTRY ORDERABLES [facility] [address] [place] [address], [facility]
--- OUTSIDE RECORDS SUMMARY | 2024-08-26 15:34 | XMS_ITS | Clinical Summary ---
Author Organization [facility] Address [address] [place] [address] Care Team Providers Care Communications Equipment Supervisor Name Role Phone Unavailable Primary Care Provider Unavailabl e Source Comments [facility],non-owned Affiliates and Associated Physician Practices is amultiple site organization consisting of ambulatory clinics and hospital sitesin [place], [place], [place] and [place]. This disclosure is being madepursuant to the Care Everywhere program and may not contain all information available regarding this patient. Last updated 18.[employer] [facility] Allergies No known active allergies Medications * [...] 03/11/2020 11:21 PM CDT Plan of Treatment Health Maintenance Due Date Last Done Comments HIV SCREENING 2018 HPV VACCINE (1 - Male 3-dose series) 2018 MENINGOCOCCAL (Group B) VACCINE (1 of 2 - Standard) 2019 HEPATITIS C SCREENING 05/03/2021 HEPATITIS B VACCINE (1 of 3 - 19+ 3-dose series) 2022 PNEUMOCOCCAL VACCINE (1 of 2 - PCV) 2022 COVID-19 VACCINE (3 - season) 2024 07/04/2021, 06/07/2021 INFLUENZA VACCINE (#1) 2024 , 06/05/2020, 04/14/2020, Additional history exists DEPRESSION SCREENING 07/26/2024 DTAP/TDAP/TD VACCINES (2 - Td or Tdap) 11/23/2031 11/22/2021 ZOSTER VACCINE (1 of 2) 2053 HIB VACCINE Aged Out No longer eligi ble based on patient's age to complete this topic MENINGOCOCCAL VACCINE Aged Out No johny tracy eligible based on patient's age to complete this topic
--- OUTSIDE RECORDS SUMMARY | 2024-08-26 15:34 | XMS_ITS | Continuity of Care Document ---
Author Organization [facility] [employer] Address [address] [place] [address] Phone Care Team Providers Care Chain Saw Mechanic Name Role Phone Renae Zamora DMD Unavailable Unavailabl e Procedures Procedure Date Bitewings Two Films Periodic Oral Evaluation ??? Established Patient Caries Risk Assessment & Documentation, Moderate Sealant ??? Per Tooth Sealant ??? Per Tooth Prophylaxis Child Topical Application Of Fluoride (Prophyl axis Not I Comprehensive Oral Evaluation 0 Bitewings Two Films Advance Directives Directive Yes / No Effective Date File Name No Information Encounters Encounter Description Practice Location Reason(s) For Visit Diagnoses Date Provider Providers Copied on Encounter [facility], [address], [place], [place], [id number], [place] tel:[phone] [facility] DEN-Encounte r for dental exam and cleaning w abnormal findingsDEN- Encounter for dental exam and cleaning w/o abnormal findings 8 Noah Macdonald. [address] [place], [address], [place]. tel:[phone] Referring Provider: Renae Spangler, [address], [place], [facility]. tel:[phone] [facility], [address], [place], [place], [id number], tel:[phone] [facility] Dental examination Sep-1 6-201 0 No Information [facility], [address], [place], [place], [id number], tel:[phone] [facility] Dental examination Sep-0 2-201 0 No Information [facility], [address], [place], [place], [id number], tel:[phone] [facility] No Information Aug-0 2-201 0 Harmony Mccartney. [address], [place], [place], [address], . tel:[phone] Referring Provider: Sherrill Mix, [address], [place], [address]. tel:[phone] Family History Family Member Type Diagnosis Age At Onset No Information Payers Payer name Insurance type Covered libertarian ID anam bacon(s) [employer] [id number] Social History Type Description Quantity Date Captured Comments Sex Male Smoking Status No Information Chief Complaint And Reason For Visit No Information Reason For Referral Reason For Referral No Information History Of Present Illness Encounter Date Complaint History Of Prese nt Illness No Information Functional Status Date Functional Assessmen t No Information Instructions Date Instruction Additional Infor mation No Information Assessments Type Assessment Date No Information Patient Care Teams Name Effective Dates (start - stop) Status Members No Information
[2024-08-26 15:35] VITALS: BP 145/99; PULSE 113; RESP 16; TEMP 37.6; O2SAT 99
--- NOTE | 2024-08-26 16:20 | ED_ITS ---
HPI - URI/Sore Throat General Chief Complaint: Upper Respiratory Infection Stated Complaint: ISEBLL, fever, mult c/o Time Seen by Provider: 08/26/24 16:19 Source: patient Mode of arrival: ambulatory Limitations: no limitations History of Present Illness HPI Narrative: 19 years old white male came to the ED by private car with his girlfriend complaining of headache, fever, chills, body aches and back pain started this morning. Patient did not take any medication prior to arrival to the emergency room. Related Data Home Medications ?Medication ?Instructions ?Recorded ?Confirmed ?Last Taken ?Type clonidine HCl 0.1 mg tablet 0.1 mg PO BID 12/03/23 12/03/23 Unknown History gabapentin 600 mg tablet 600 mg PO BID 12/03/23 12/03/23 Unknown History Allergies Allergy/AdvReac Type Severity Reaction Status Date / Time No Known Allergies Allergy Verified 08/26/24 16:20 Review of Systems Review of Systems: All systems reviewed & are unremarkable except as noted in HPI and below PMFSH Past Medical History Medical History Diabetes Surgical History Surgical History History of hand surgery Social History Social History Substance use type: marijuana Exam Narrative: General appearance: Well-developed, well-nourished Skin: Normal color Head: Normocephalic, nontraumatic Eyes: Clear conjunctiva ENT: Slight oropharyngeal erythema, runny nose Chest and respiratory: Airway patent, no respiratory distress, no accessory muscle use Heart: Regular rate/rhythm Abdomen: Soft, nontender, no organomegaly, quiet bowel sounds Vascular: Normal peripheral pulses, normal capillary refill. Musculoskeletal: Normal range of motion, nontender back Neurologic: Alert and oriented ?3, MECHANICAL PROJECT MANAGER is normal as tested, no gross motor deficit Course Course Emergency Course: Patient came with upper respiratory viral infection like symptoms Tested positive for flu A Discharged on Tamiflu. Vital Signs Vital signs: Vital Signs Temperature 37.6 C H 08/26/24 15:35 Pulse Rate 113 H 08/26/24 15:35 Respiratory Rate 16 08/26/24 15:35 Blood Pressure 145/99 H 08/26/24 15:35 Pulse Oximetry 99 08/26/24 15:35 Oxygen Delivery Room Air 08/26/24 15:35 Temperature 37.6 C H 08/26/24 15:35 Pulse Rate 113 H 08/26/24 15:35 Respiratory Rate 16 08/26/24 15:35 Blood Pressure 145/99 H 08/26/24 15:35 Pulse Oximetry 99 08/26/24 15:35 Oxygen Delivery Room Air 08/26/24 16:18 MDM - URI/Sore Throat Lab Data Labs: Lab Results 08/26/24 Range/Units 16:29 Influenza A (RT-PCR) Positive A (Negative) Influenza B (RT-PCR) Negative (Negative) RSV (RT-PCR) Negative (Negative) SARS-CoV-2 RNA (RT-PCR) Negative (Negative) Imaging Data Radiologist's impression: Impressions Chest X-Ray 08/26/24 16:59 IMPRESSION: No acute cardiopulmonary process. Critical Care Time Critical Care Time Critical Care Time: No Discharge Plan Discharge Clinical Impression: Influenza Patient Disposition: Home, Self-Care Condition: Stable Instructions: Influenza (ED) Additional Instructions: Return if symptoms are worsening , call your family physician for appointment, take Tylenol ibuprofen as as needed for aches and pain, continue home medications. Patient Language: Georgian Prescriptions: New oseltamivir [Tamiflu] 75 mg capsule 75 mg PO BID Qty: 10 0RF No Action clonidine HCl 0.1 mg tablet 0.1 mg PO BID gabapentin 600 mg tablet 600 mg PO BID metformin 500 mg tablet 500 mg PO BID Qty: 60 0RF ondansetron 4 mg tablet,disintegrating 4 mg PO Q8H Qty: 14 0RF Follow-up/Referrals: Mookie,Mari Ratliff MD [Primary Care Provider] -
--- OUTSIDE RECORDS SUMMARY | 2024-08-26 16:25 | XMS_ITS | Continuity of Care Document ---
Author Organization [facility] [employer] Address [address] [place] [address] Phone Care Team Providers Care Arts Education Teacher Name Role Phone Renae Zamora DMD Unavailable [...] Diagnoses Date Provider Providers Copied on Encounter [facility], [address], [place], [place], [id number], [place] tel:[phone] [facility] DEN-Encounte r for dental exam and cleaning w abnormal findingsDEN- Encounter for dental exam and cleaning w/o abnormal findings 8 Noah Macdonald. [address] [place], [address], [place]. tel:[phone] Referring Provider: Renae Spangler, [address], [place], [facility]. tel:[phone] [facility], [address], [place], [place], [address], tel:[phone] [facility] Dental examination Sep-1 6-201 0 No Information [facility], [address], [place], [place], [id number], tel:[phone] [facility] Dental examination Sep-0 2-201 0 No Information [facility], [address], [place], [place], [address], tel:[phone] [facility] No Information Aug-0 2-201 0 Harmony Mccartney. [address], [place], [place], [address], . tel:[phone] Referring Provider: Sherrill Mix, [address], [place], [address]. tel:[phone] Family History Family Member Type Diagnosis Age At Onset No Information Payers Payer name Insurance type Covered green party ID anam bacon(s) [employer] [id number] Social History Type Description Quantity Date Captured [...]
--- OUTSIDE RECORDS SUMMARY | 2024-08-26 16:25 | XMS_ITS | Referral Summary ---
Author Organization [facility] Address [address] [place] [address] Care Team Providers Care Bioinformatics Scientist Name Role Phone Unavailable Primary Care Provider Unavailabl e Source Comments [facility],non-owned Affiliates and Associated Physician Practices is amultiple site organization consisting of ambulatory clinics and hospital sitesin [place], [place], [place] and [place]. This disclosure is being madepursuant to the Care Everywhere program and may not contain all information available regarding this patient. Last updated 18.[facility] Allergies No known active allergies Medications * [...]
--- OUTSIDE RECORDS SUMMARY | 2024-08-26 16:25 | XMS_ITS | Clinical Summary ---
Author Organization [facility] [employer] Address [address] [place] [address] Care Team Providers Care Journeyman Painter Name Role Phone Unavailable Primary Care Provider Unavailabl e Source Comments [facility] [employer],non-owned Affiliates and Associated Physician Practices is amultiple site organization consisting of ambulatory clinics and hospital sitesin [place], [place], [place] and [place]. This disclosure is being madepursuant to the Care Everywhere program and may not contain all information available regarding this patient. Last updated 18.[employer] Allergies No known active allergies Medications * [...]
--- OUTSIDE RECORDS SUMMARY | 2024-08-26 16:25 | XMS_ITS | Patient Health Summary ---
Author Organization [facility] [employer] Address [address] [place] [address] Care Team Providers Care Press Clippings Cutter And Paster Name Role Phone Unavailable Primary Care Provider Unavailabl e Note from [facility] [employer] [facility],non-owned Affiliates and Associated Physician Practices is amultiple site organization consisting of ambulatory clinics and hospital sitesin [place], [place], [place] and [place]. This disclosure is being madepursuant to the Care Everywhere program and may not contain all information available regarding this patient. Last updated 18.[facility] [employer] Allergies No known active allergies Medications * [...] 11.0 10? 3 /uL 11/22/2021 5:54 PM [facility] RBC 4.36(L) 4.50 - 5.30 10? 6 /uL 11/22/2021 5:54 PM [facility] Hemoglobin 14.3 13.0 - 16.0 g/dL 11/22/2021 5:54 PM [facility] Hematocrit 39.9 37.0 - 49.0 % 11/22/2021 5:54 PM [facility] MCV 91.5 78.0 - 98.0 fL 11/22/2021 5:54 PM [facility] MCH 32.8 25.0 - 35.0 pg 11/22/2021 5:54 PM [facility] MCHC 35.8 31.0 - 37.0 g/dL 11/22/2021 5:54 PM [facility] Platelet Count 236 100 - 400 10? 3 /uL 11/22/2021 5:54 PM [facility] RDW-SD 46.8 36.0 - 50.0 fL 11/22/2021 5:54 PM [facility] RDW-CV 14.0 11.5 - 14.0 % 11/22/2021 5:54 PM [facility] MPV 10.9(H) 6.0 - 9.5 fL 11/22/2021 5:54 PM [facility] nRBC Absolute 0.00 0 10? 3 /uL 11/22/2021 5:54 PM [facility] nRBC Auto 0.0 0 /100 WBC 11/22/2021 5:54 PM CDT [facility] Neutrophils % 65.8 31.0 - 78.0 % 11/22/2021 5:54 PM CDT [facility] Lymphocytes % 23.5 13.0 - 54.0 % 11/22/2021 5:54 PM CDT [facility] Monocytes % 7.7 4.0 - 13.0 % 11/22/2021 5:54 PM CDT [facility] Eosinophils % 2.0 0.0 - 8.0 % 11/22/2021 5:54 PM CDT [facility] Basophil % 0.6 0.0 - 100.0 % 11/22/2021 5:54 PM CDT [facility] Neutrophils Absolute 5.6 1.4 - 8.6 10? 3 /uL 11/22/2021 5:54 PM CDT [facility] Lymphocyte Absolute 2.0 0.6 - 5.9 10? 3 /uL 11/22/2021 5:54 PM CDT [facility] Monocytes Absolute 0.66 0.18 - 1.43 10? 3 /uL 11/22/2021 5:54 PM CDT [facility] Eosinophils Absolute 0.17 0.00 - 0.88 10? 3 /uL 11/22/2021 5:54 PM CDT [facility] Basophils Absolute 0.05 0.00 - 0.22 10? 3 /uL 11/22/2021 5:54 PM CDT [facility] Immature Granulocytes % 0.4 0.0 - 1.0 % 11/22/2021 5:54 PM CDT [facility] Immature Granulocytes Absolute 0.03 11/22/2021 5:54 PM T [facility] Blood BLOOD SPECIMEN / Unknown Venipuncture / Unknown 11/22/2021 5:42 PM CDT 11/22/2021 5:48 PM CDT Clemente Oden MD LAB - HEMATOLOGY ORD ERABLES [facility] [address] [place] [address], [facility] [phone] * (ABNORMAL) COMPREHENSIVE METABOLIC PANEL (11/22/2021 5:42 PM CDT) Only the most recent of3 resultswithin the time period is included. BUN 9 7 - 26 mg/dL 11/22/2021 6:19 PM [facility] Creatinine 0.77 0.71 - 1.16 mg/dL 11/22/2021 6:19 PM [facility] Sodium 141 136 - 145 mmol/L 11/22/2021 6:19 PM [facility] Potassium 3.9 3.5 - 4.5 mmol/L 11/22/2021 6:19 PM [facility] Chloride 101 98 - 107 mmol/L 11/22/2021 6:19 PM [facility] CO2 30(H) 22 - 29 mmol/L 11/22/2021 6:19 PM [facility] Glucose 304(H) 70 - 115 mg/dL 11/22/2021 6:19 PM [facility] Calcium 10.1 8.4 - 10.2 mg/dL 11/22/2021 6:19 PM [facility] Protein Total 7.5 6.0 - 8.3 g/dL 11/22/2021 6:19 PM [facility] Albumin 4.0 3.4 - 5.0 g/dL 11/22/2021 6:19 PM [facility] Bilirubin Total 0.9 0.2 - 1.2 mg/dL 11/22/2021 6:19 PM [facility] Alkaline Phosphatase 107 40 - 150 U/L 11/22/2021 6:19 PM [facility] ALT 22 5 - 55 U/L 11/22/2021 6:19 PM [facility] AST 14 5 - 34 U/L 11/22/2021 6:19 PM [facility] Anion Gap 14 8 - 18 11/22/2021 6:19 PM [facility] BUN/Creatinine Ratio 12 7 - 23 11/22/2021 6:19 PM [facility] Osmolality Calculated 302(H) 270 - 300 mOsm/kg 11/22/2021 6:19 PM [facility] Albumin/Globulin Ratio 1.1 1.1 - 2.3 11/22/2021 6:19 PM [facility] eGFR by CKD-EPI >90 >=90 mL/min/1.7 3 m2 11/22/2021 6:19 PM CDT [facility] Blood BLOOD SPECIMEN / Unknown Venipuncture / Unknown 11/22/2021 5:42 PM CDT 11/22/2021 5:49 PM CDT Clemente Oden MD LAB - CHEMISTRY SABINA CORTEZ Performing Organization Address City/[facility]/ZIP Co de Phone Number [address] [address], [place] [phone] * (ABNORMAL) GLUCOSE - POINT OF CARE (11/22/2021 4:18 PM CDT) Only the most recent of6 resultswithin the time period is included. Glucose WB/POC 310(H) 70 - 115 mg/dL 11/22/2021 4:23 PM CDT [facility] Specimen Type Cap Fingerstick 2021 4:23 PM CDT [facility] Blood BLOOD SPECIMEN / Unknown 11/22/2021 4:18 PM CDT 11/22/2021 4:23 PM CDT Provider Unknown LAB - POINT OF CARE ORDERABLES Performing Organization Address [facility] Co de Phone Number [address] [address], [place] [phone] * CT FACIAL BONES WO CONTRAST (11/22/2021 1:53 PM CDT) Anatomical Region Laterality Modality Head Computed Tomogra phy 11/22/2021 2:17 PM CDT Impressions 11/22/2021 5:52 PM CDT IMPRESSION: 1.No acute intracranial hemorrhage, midline shift, or significant mass effect. 2.No acute facial bone fractures identified. 3.Paranasal sinus disease as outlined. Report drafted by Patricia Arboleda MD (It Quality Analyst). This report was approved ??by Patircia Arboleda ?? on 11/22/2021 5:51 PM . [...] outlined. Report drafted by Patricia Arboleda MD (It Quality Analyst). This report was approved by Patricia Arboleda on 11/22/2021 5:51 PM . I, Dr. JOSE CHILDRESS have personally reviewed and interpreted this examination/study. This report was electronically signed by JSOE CHILDRESS on11/22/2021 5:52 PM . Yon BLUM-Sun [...] outlined. Report drafted by Patricia Arboleda MD (It Quality Analyst). This report was approved ??by Patricia Arboleda [...] outlined. Report drafted by Patricia Arboleda MD (It Quality Analyst). This report was approved by Patricia Arboleda [...] URINE CHEMIS TRY ORDERABLES Performing Organization Address [facility] Co de Phone Number [facility] [address] * URINE MICROSCOPIC ONLY REFLEX TO [...] - URINALYSIS O RDERABLES Performing Organization Address [facility] Co de Phone Number [facility] [address] * (ABNORMAL) URINALYSIS REFLEX MICROSCOPIC REFLEX [...] 03/12/2020 1:33 AM CDT [facility] Specific [place] UA 1.027 1.005 - 1.030 03/12/2020 1:33 [...] URINALYSIS O RDERABLES Performing Organization Address City/State/[facility] Co de Phone Number [facility] [address] * ALCOHOL ETHYL BLOOD (03/11/2020 11:36 [...] - CHEMISTRY OR DERABLES Performing Organization Address [facility] Co de Phone Number [facility] [address] * (ABNORMAL) SALICYLATE LEVEL BLOOD (03/11/2020 11:36 PM CDT) Only the most recent of2 resultswithin the time period is included. Salicylate <5.0(L) 15.0 - 30.0 mg/dL 03/12/2020 12:10 AM CDT [facility] Blood BLOOD SPECIMEN / Unknown Venipuncture / Unknown 03/11/2020 11:36 PM CDT 03/11/2020 11:46 PM CDT John Sykes MD LAB - CHEMISTRY OR DERABLES Performing Organization Address [email or web address]] de Phone Number [facility] [address] * (ABNORMAL) ACETAMINOPHEN LEVEL (03/11/2020 11:36 PM CDT) Only the most recent of2 resultswithin the time period is included. Acetaminophen <0.6(L) 10.0 - 30.0 ug/mL 03/12/2020 12:10 AM CDT [facility] Blood BLOOD SPECIMEN / Unknown Venipuncture / Unknown 03/11/2020 11:36 PM CDT 03/11/2020 11:46 PM CDT Narrative [facility] - 03/12/2020 12:10 AM CDT Significantly reduced Acetaminophen recovery has been demonstrated in situations where testing has been performed immediately after introduction of N- acetylcysteine (NAC). John Sykes MD LAB - CHEMISTRY OR DERABLES Performing Organization Address [facility] Co de Phone Number [facility] [address] * TSH (03/10/2020 11:44 AM CDT) TSH 0.8928 0.35 - 4.94 uIU/mL 03/10/2020 12:37 PM CDT [facility] Blood BLOOD SPECIMEN / Unknown Venipuncture / Unknown 03/10/2020 11:44 AM CDT 03/10/2020 11:50 AM CDT Areli Cain LUCERNE FARMER-ROUGHER MACHINE OPERATOR LAB - CHEMISTRY ORDERABLES [facility] [address] [place] [address], [facility]
[2024-08-26 17:10] LABS: Influenza A QL RT-PCR Positive (Negative); Influenza B QL RT-PCR Negative (Negative); RSV RNA, RT-PCR Negative (Negative); SARS-CoV-2 RNA PCR Negative (Negative)
== END 2024-08-26 18:00 | disposition home or self-care (01) ==
PROVIDERS: Emergency Provider Emergency Medicine; PCP Internal Medicine Gastroenterology
DX: J11.1 Influenza due to unidentified influenza virus with other respiratory manifestations (principal); E11.9 Type 2 diabetes mellitus without complications; Z20.822 Contact with and (suspected) exposure to COVID-19
CPT/HCPCS: 71045; 87637; 99283

== ENCOUNTER 2024-12-13 19:10 | Emergency (ER) | payer OTHER, SELFPAY ==
[2024-12-13 19:32] VITALS: BP 130/81; PULSE 99; RESP 16; TEMP 37.1; O2SAT 99
--- NOTE | 2024-12-13 19:34 | ED_ITS ---
HPI - Dental/Oral General Chief complaint: Dental/Oral Stated complaint: BLACK/YELLOW TONGUE Time Seen by Provider: 12/13/24 19:34 Source: patient Mode of arrival: ambulatory Limitations: no limitations History of Present Illness HPI Narrative: 19-year-old male presents with complaint of yellowish brown coloring to his tongue with thick ?cat hair ?feeling for 1 week. Patient smokes marijuana daily. All systems reviewed and negative except as noted above. Related Data Allergies Allergy/AdvReac Type Severity Reaction Status Date / Time No Known Allergies Allergy Verified 12/13/24 19:40 Review of Systems Review of Systems: CONSTITUTIONAL: Denies fever, chills, or sweats. EYES: Denies visual changes, redness, or discharge. ENT: Denies rhinorrhea, congestion, sore throat, or otalgia. Reports yellowish brown color to tongue with feeling of cat hair on tongue CARDIOVASCULAR: Denies chest pain, palpitations, or edema. RESPIRATORY: Denies cough or dyspnea. GASTROINTESTINAL: Denies abdominal pain, nausea, vomiting, or diarrhea. GENITOURINARY: Denies dysuria or hematuria. SKIN: Denies rash or itching. MUSCULOSKELETAL: Denies back pain, joint pain, or myalgia. NEUROLOGIC: Denies headache, numbness, or weakness. PSYCHIATRIC: Denies anxiety or depression. All other systems reviewed are negative, except as documented in HPI. [facility] Past Medical History Medical History Diabetes Surgical History Surgical History History of hand surgery Social History Social History Substance use type: marijuana Comments At time of signature, agree with nursing past medical, surgical, social and family history. There is no relevant family history pertinent to the presenting complaint. Exam Narrative: GENERAL: This is a well-nourished, well-developed patient, in no apparent distress. HEAD: normocephalic, atraumatic. EYES: PERRL. Sclera clear/white. Vision is grossly intact. EARS: External ears normal NOSE: External nose normal ORAL: Yellowish brown thick plaques to tongue surface NECK: Neck supple, non-tender without lymphadenopathy, masses or thyromegaly. CARDIOVASCULAR: Regular rate and rhythm without murmurs, gallops, or rubs. RESPIRATORY: Clear to auscultation. Breath sounds equal bilaterally. No wheezes, rales, or rhonchi. SKIN: warm, Dry, intact with no suspicious lesions or rash, good texture and turgor. NEURO: awake, alert, and oriented to person, place and time. There were no obvious focal neurologic abnormalities. EXTREMITIES: No joint tenderness, effusion, or edema noted. Course Course Level of Care: Express Care Visit Vital Signs Vital signs: Vital Signs Temperature 37.1 C 12/13/24 19:32 Pulse Rate 99 12/13/24 19:32 Respiratory Rate 16 12/13/24 19:32 Blood Pressure 130/81 12/13/24 19:32 Pulse Oximetry 99 12/13/24 19:32 Temperature 37.1 C 12/13/24 19:32 Pulse Rate 99 12/13/24 19:32 Respiratory Rate 16 12/13/24 19:32 Blood Pressure 130/81 12/13/24 19:32 Pulse Oximetry 99 12/13/24 19:32 Reviewed MDM - Dental/Oral MDM Narrative Medical decision making narrative: Treat with nystatin for oral thrush. Recommend good oral hygiene, washing device used to smoke marijuana daily. Patient is well-appearing, nontoxic Discharge Plan Discharge Clinical Impression: Candidiasis of mouth Patient Disposition: Home Condition: Stable Instructions: Oral Candidiasis (ED) Additional Instructions: Use medication as prescribed. Angie your teeth and tongue twice a day. Follow-up with dentist if not improving. Patient Language: Polish Prescriptions: New nystatin 100,000 unit/mL suspension 5 ml PO QID 10 Days Qty: 200 0RF Rx Instructions: swish and swallow No Action clonidine HCl 0.1 mg tablet 0.1 mg PO BID gabapentin 600 mg tablet 600 mg PO BID metformin 500 mg tablet 500 mg PO BID Qty: 60 0RF oseltamivir [Tamiflu] 75 mg capsule 75 mg PO BID Qty: 10 0RF ondansetron 4 mg tablet,disintegrating 4 mg PO Q8H Qty: 14 0RF Follow-up/Referrals: Mookie,Mari Ratliff MD [Primary Care Provider] - Time of Disposition: 19:39
== END 2024-12-13 19:41 | disposition home or self-care (01) ==
PROVIDERS: Emergency Provider Nurse Practitioner Family; PCP Internal Medicine Gastroenterology
DX: B37.0 Candidal stomatitis (principal); E11.9 Type 2 diabetes mellitus without complications; Z79.84 Long term (current) use of oral hypoglycemic drugs; F12.90 Cannabis use, unspecified, uncomplicated
CPT/HCPCS: 99213; G0463